=== PATIENT | male | born 1995 | race Caucasian/White ===

== ENCOUNTER 2017-09-07 12:16 | Emergency (ER) | payer MEDICAID ==
[~2017-09-07] VITALS: Ht 180.3 cm; Wt 63.6 kg
[2017-09-07] MEDS ORDERED: SILD50TA PO (13:01)
[2017-09-07] MEDS ORDERED: TADA10TA PO (13:01)
[2017-09-07] MEDS ORDERED: NICO-687 TOP (13:03)
[2017-09-07 13:24] VITALS: BP 105/65
== END 2017-09-07 13:26 | disposition home or self-care (01) ==
LOC: ER 12:18
DX: N52.9 Male erectile dysfunction, unspecified (principal); F17.200 Nicotine dependence, unspecified, uncomplicated; F12.10 Cannabis abuse, uncomplicated; Z88.0 Allergy status to penicillin
CPT/HCPCS: 99283; J7030

== ENCOUNTER 2020-01-01 09:11 | Emergency (ER) | payer MEDICAID ==
[~2020-01-01] VITALS: Ht 180.3 cm; Wt 61.4 kg
[~2020-01-01 09:11] MED LIST: TADA10TA PO
[2020-01-01 09:19] VITALS: BP 116/67
[2020-01-01] MEDS ORDERED: CLIN300C54 PO (09:34)
== END 2020-01-01 09:41 | disposition home or self-care (01) ==
LOC: ER 09:12
DX: S03.2XXA Dislocation of tooth, initial encounter (principal); F12.90 Cannabis use, unspecified, uncomplicated; Z72.89 Other problems related to lifestyle; Z88.0 Allergy status to penicillin; Z79.899 Other long term (current) drug therapy; X58.XXXA Exposure to other specified factors, initial encounter; Y93.89 Activity, other specified; Y92.89 Other specified places as the place of occurrence of the external cause; Y99.8 Other external cause status
CPT/HCPCS: 99283